=== PATIENT | male | born 1945 | race Caucasian/White ===

== ENCOUNTER 2021-01-19 04:24 | Emergency (ER) | payer MEDICARE ==
[2021-01-19 04:33] VITALS: BP 150/70; PULSE 81; TEMP 98.1; BMI 28.7
[2021-01-19] MEDS ORDERED: MINERAL OIL ENEMA 133 ML ENEMA PR ONE (05:07)
== END 2021-01-19 05:25 | disposition home or self-care (01) ==
LOC: JER 04:24
DX: K59.00 Constipation, unspecified (principal)
CPT/HCPCS: 99283-25

== ENCOUNTER 2023-06-01 18:27 | Inpatient (IN) | payer MEDICARE ==
[2023-06-01 20:55] LABS: BASO % 0.3 % (0-2.0); EOS % 0.4 % (0-4.5); HEMATOCRIT 32.6 % (35.4-49); HEMOGLOBIN 10.8 GM/dL (11.7-16.9); LYMPH % 57.6 % (8-40); MCH 25.1 pg (25.7-33.7); MEAN PLT VOLUME 7.3 fl (7.5-11.1); NEUT % 35.7 % (42.8-82.8); PLATELET COUNT 175 10^3/uL (134-434); RBC 4.29 M/mm3 (4.00-5.60); RDW 16.7 % (11.9-15.9); WHITE BLOOD COUNT 10.4 K/mm3 (4.0-10.0)
[2023-06-01 21:02] LABS: INR 1.13 (0.83-1.09); PROTHROMBIN TIME (PATIENT) 13.1 SEC (9.7-13.0)
[2023-06-01 21:05] LABS: ACTIVATED PTT 31.2 SECONDS (25.2-36.5)
[2023-06-01 21:18] LABS: POTASSIUM 4.5 mmol/L (3.5-5.1)
[2023-06-01 21:21] LABS: BLOOD UREA NITROGEN 24.6 mg/dL (7-18); MAGNESIUM 1.8 mg/dL (1.8-2.4)
[2023-06-01 21:24] LABS: CREATININE 1.2 mg/dL (0.55-1.3); PHOSPHOROUS 3.6 mg/dL (2.5-4.9)
[2023-06-01 21:25] LABS: TOT PROT 6.1 g/dl (6.4-8.2)
[2023-06-01 21:26] LABS: BILIRUBIN,TOTAL 0.3 mg/dL (0.2-1)
[2023-06-01] MEDS ORDERED: ACETAMINOPHEN INJECTION 100 ML IVPB ONE (21:41)
[2023-06-01] MEDS ORDERED: KETOROLAC TROMETHAMINE 30 MG/1 ML VIAL ONE (21:41)
[2023-06-01] MEDS ORDERED: LIDOCAINE 4% PATCH TP ONE (21:41)
[2023-06-01] MEDS: KETOROLAC TROMETHAMINE 15 MG/ML VIAL IVPUSH ONE (21:52)
[2023-06-01] MEDS: ACETAMINOPHEN 1000 MG/100 ML BAG IVPB ONE (21:52)
[2023-06-01] MEDS: LIDOCAINE 4% PATCH TP ONE (21:52)
[2023-06-01] MEDS: SODIUM CHLORIDE 0.9% 500 ML INFUS.BAG IV ONE (22:03)
[2023-06-02] MEDS ORDERED: DEXAMETHASONE SOD PHOSPHATE 10 MG/1 ML VIAL ONE (01:05)
[2023-06-02] MEDS: DEXAMETHASONE SOD PHOSPHATE 10 MG/1 ML VIAL IVPUSH ONE (01:11)
[2023-06-02] MEDS ORDERED: DEXTROSE 5%-0.45% SALINE 1,000 ML IV SCH (03:13)
[2023-06-02] MEDS: DEXTROSE 5%-0.45% SALINE 1,000 ML IV SCH (03:25)
[2023-06-02] MEDS ORDERED: ACETAMINOPHEN 1000 MG/100 ML BAG IVPB PRN (04:00)
[2023-06-02] MEDS ORDERED: hydrALAZINE HCL 25 MG TABLET (FP) PO SCH (06:00)
[2023-06-02] MEDS: SODIUM CHLORIDE 1,000 ML IV SCH ×2 (06:32→18:30)
[2023-06-02] MEDS: INSULIN ASPART SLIDING SCALE (NOVOLOG) 1 VIAL SQ SCH ×2 (06:35→18:30)
[2023-06-02] MEDS ORDERED: THROMBIN (BOVINE) 5,000 UNIT VIAL TP ONE (08:37)
[2023-06-02] MEDS ORDERED: GENTAMICIN SO4 80 MG/2 ML VIAL ONE (08:37)
[2023-06-02] MEDS ORDERED: LIDOCAINE 1%/EPI 1:100000 (20 ML MULTI DOSE VIAL) ONE (08:38)
[2023-06-02] MEDS ORDERED: BACITRACIN ZINC 15 GM TUBE TOPICAL OINTMENT ONE (08:38)
[2023-06-02] MEDS ORDERED: PROPOFOL 40 ML ONE (08:41)
[2023-06-02] MEDS ORDERED: ROCURONIUM BROMIDE 50 MG/5 ML SYRINGE ONE ×2 (08:41→10:15)
[2023-06-02] MEDS ORDERED: SUCCINYLCHOLINE CHLORIDE 200 MG/10 ML SYRINGE ONE (08:41)
[2023-06-02 09:01] LABS: POTASSIUM 4.6 mmol/L (3.5-5.1)
[2023-06-02 09:16] LABS: CALCIUM 9.1 mg/dL (8.5-10.1)
[2023-06-02 09:17] LABS: BLOOD UREA NITROGEN 23.9 mg/dL (7-18)
[2023-06-02 09:20] LABS: CREATININE 1.1 mg/dL (0.55-1.3)
[2023-06-02] MEDS: metoPROLOL SUCCINATE 25 MG TAB.SR.24H (FP) PO SCH (09:30)
[2023-06-02 09:33] LABS: BASO % 0.3 % (0-2.0); HEMATOCRIT 33.4 % (35.4-49); HEMOGLOBIN 10.7 GM/dL (11.7-16.9); LYMPH % 44.3 % (8-40); MCH 24.6 pg (25.7-33.7); MEAN CELL VOLUME 76.7 fl (80-96); MEAN PLT VOLUME 7.6 fl (7.5-11.1); MONO % 1.7 % (3.8-10.2); NEUT % 53.7 % (42.8-82.8); PLATELET COUNT 161 10^3/uL (134-434); RBC 4.36 M/mm3 (4.00-5.60); RDW 16.5 % (11.9-15.9); WHITE BLOOD COUNT 6.1 K/mm3 (4.0-10.0)
[2023-06-02] MEDS: TAMSULOSIN HCL 0.4 MG CAP PO SCH (09:49)
[2023-06-02] MEDS: ISOSORBIDE MONONITRATE 30 MG TAB.SR.24H (FP) PO SCH (09:50)
[2023-06-02] MEDS: LIDOCAINE PATCH REMOVAL MC SCH (09:50)
[2023-06-02] MEDS: FINASTERIDE 5 MG TABLET (FP) PO SCH (09:50)
[2023-06-02] MEDS: FLUTICASONE PROP 0.05% 16 GM NASAL SPRAY NS SCH (09:50)
[2023-06-02] MEDS: ALLOPURINOL 100 MG TABLET (FP) PO SCH (09:50)
[2023-06-02] MEDS: PANTOPRAZOLE 40 MG TABLET PO SCH (09:50)
[2023-06-02] MEDS: DULoxetine HCL 20 MG CAPSULE.DR PO SCH ×2 (09:50→21:45)
[2023-06-02] MEDS: LIDOCAINE 1%/EPI 1:100000 (50 ML MULTI DOSE VIAL) INF ONE (10:42)
[2023-06-02] MEDS ORDERED: VANCOMYCIN 1,000 MG VIAL (RESTRICTED TO ID ONLY) ONE (10:42)
[2023-06-02] MEDS: ceFAZolin SODIUM 1 GM VIAL IVPB ONE (10:43)
[2023-06-02] MEDS: VANCOMYCIN 1,000 MG VIAL (RESTRICTED TO ID ONLY) IVPB ONE (10:44)
[2023-06-02] MEDS ORDERED: DEXAMETHASONE SOD PHOSPHATE 4 MG/1 ML VIAL ONE (11:24)
[2023-06-02] MEDS ORDERED: ONDANSETRON 4 MG/2 ML VIAL ONE (11:24)
[2023-06-02] MEDS ORDERED: ceFAZolin SODIUM 1 GM VIAL ONE (11:24)
[2023-06-02] MEDS: THROMBIN (BOVINE) 5,000 UNIT VIAL TP ONE (11:37)
[2023-06-02] MEDS ORDERED: BUPIVACAINE HCL/PF 0.5% (5MG/ML) 10 ML VIAL ONE (12:33)
[2023-06-02] MEDS ORDERED: BUPIVACAINE LIPOSOME/PF (EXPAREL) 266 MG/20 ML VIAL ONE (12:33)
[2023-06-02] MEDS: BUPIVACAINE LIPOSOME/PF (EXPAREL) 266 MG/20 ML VIAL NR ONE (12:38)
[2023-06-02] MEDS: BUPIVACAINE HCL/PF 0.5% (5 MG/ML) 30 ML VIAL IJ ONE (12:39)
[2023-06-02] MEDS ORDERED: SUGAMMADEX SODIUM 200 MG/2 ML VIAL ONE (12:45)
[2023-06-02] MEDS ORDERED: ACETAMINOPHEN INJECTION 100 ML IVPB ONE (13:50)
[2023-06-02] MEDS ORDERED: LABETALOL HCL 5 MG/1 ML (100MG/20 ML VIAL) ONE (14:23)
[2023-06-02] MEDS: LABETALOL HCL 20 MG/4 ML VIAL ONE (14:25)
[2023-06-02] MEDS ORDERED: oxyCODONE HCL 5 MG TABLET PO PRN ×2 (14:28)
[2023-06-02] MEDS ORDERED: ONDANSETRON 4 MG/2 ML VIAL IVPUSH PRN ×2 (15:03→15:07)
[2023-06-02] MEDS ORDERED: LACTATED RINGERS SOLUTION 1,000 ML/1,000 ML INFUS.BAG IV SCH (15:07)
[2023-06-02] MEDS ORDERED: diphenhydrAMINE HCL 25 MG CAPSULE (FP) PO PRN (15:07)
[2023-06-02] MEDS ORDERED: LACTATED RINGERS SOLUTION 1,000 ML IV SCH (15:15)
[2023-06-02] MEDS: LABETALOL HCL 5 MG/1 ML (100MG/20 ML VIAL) IVPUSH ONE (18:57)
[2023-06-02] MEDS: CEFAZOLIN 1 GM in DEXTROSE 5%-WATER - 50 ML IVPB SCH (19:05)
[2023-06-02] MEDS: ACETAMINOPHEN 1000 MG/100 ML BAG IVPB SCH (21:00)
[2023-06-02] MEDS: DOCUSATE SODIUM 100 MG CAPSULE (FP) PO SCH (21:42)
[2023-06-02] MEDS: ATORVASTATIN CA 40 MG TABLET (FP) PO SCH (21:46)
[2023-06-02] MEDS: oxyCODONE HCL 5 MG TABLET PO PRN (21:46)
[2023-06-02] MEDS ORDERED: ATORVASTATIN CA 40 MG TABLET (FP) PO SCH (22:00)
[2023-06-03] MEDS ORDERED: ceFAZolin SODIUM 1 GM VIAL ONE (03:03)
[2023-06-03 08:21] LABS: POTASSIUM 4.6 mmol/L (3.5-5.1)
[2023-06-03 08:22] LABS: CALCIUM 7.8 mg/dL (8.5-10.1)
[2023-06-03 08:26] LABS: CREATININE 1.3 mg/dL (0.55-1.3)
[2023-06-03 08:27] LABS: HEMATOCRIT 26.5 % (35.4-49); HEMOGLOBIN 8.5 GM/dL (11.7-16.9); MCH 24.6 pg (25.7-33.7); MCHC 32.2 g/dl (32.0-35.9); MEAN CELL VOLUME 76.4 fl (80-96); MEAN PLT VOLUME 7.6 fl (7.5-11.1); PLATELET COUNT 186 10^3/uL (134-434); RBC 3.46 M/mm3 (4.00-5.60); RDW 16.6 % (11.9-15.9); WHITE BLOOD COUNT 11.9 K/mm3 (4.0-10.0)
[2023-06-03] MEDS: FINASTERIDE 5 MG TABLET (FP) PO SCH (09:44)
[2023-06-03] MEDS: ALLOPURINOL 100 MG TABLET (FP) PO SCH (09:44)
[2023-06-03] MEDS: metoPROLOL SUCCINATE 25 MG TAB.SR.24H (FP) PO SCH (09:44)
[2023-06-03] MEDS: FOLIC ACID 1 MG TABLET (FP) PO SCH (09:44)
[2023-06-03] MEDS: TAMSULOSIN HCL 0.4 MG CAP PO SCH (09:44)
[2023-06-03] MEDS: FERROUS SO4 325 MG TABLET (FP) PO SCH (09:44)
[2023-06-03] MEDS: PANTOPRAZOLE 40 MG TABLET PO SCH (09:44)
[2023-06-03] MEDS: ISOSORBIDE MONONITRATE 30 MG TAB.SR.24H (FP) PO SCH (09:44)
[2023-06-03] MEDS: HEPARIN NA (PORCINE) 5,000 UNITS/ML 1ML VIAL SQ SCH (09:45)
[2023-06-03] MEDS: FLUTICASONE PROP 0.05% 16 GM NASAL SPRAY NS SCH (10:40)
[2023-06-03] MEDS ORDERED: INSULIN (NOVOLOG) ASPART 100 UNITS/ML 10ML VIAL ONE ×2 (11:42→20:54)
[2023-06-04] MEDS: oxyCODONE HCL 5 MG TABLET PO PRN (11:53)
[2023-06-04 11:54] LABS: PH,URINE 5.5 (5.0-8.0); URINE APPEARANCE CLEAR; URINE BILIRUBIN NEGATIVE (NEGATIVE); URINE COLOR YELLOW; URINE GLUCOSE (UA) NEGATIVE (NEGATIVE); URINE KETONE NEGATIVE (NEGATIVE); URINE LEUK ESTERASE NEGATIVE (NEGATIVE); URINE NITRITE NEGATIVE (NEGATIVE); URINE PROTEIN TRACE (NEGATIVE); URINE UROBILINOGEN 0.2 mg/dL (0.2-1.0)
[2023-06-04] MEDS: ACETAMINOPHEN 500 MG TABLET (FP) PO SCH (20:18)
[2023-06-04] MEDS: CYCLOBENZAPRINE HCL 10 MG TABLET (FP) PO SCH (21:40)
[2023-06-04] MEDS ORDERED: INSULIN (NOVOLOG) ASPART 100 UNITS/ML 10ML VIAL ONE (22:01)
[2023-06-05] MEDS: MELATONIN 5 MG TABLETS PO PRN (23:21)
[2023-06-05] MEDS: oxyCODONE HCL 5 MG TABLET PO PRN (23:22)
[2023-06-06 07:57] LABS: BASO % 0.3 % (0-2.0); EOS % 0.7 % (0-4.5); HEMATOCRIT 28.6 % (35.4-49); HEMOGLOBIN 9.1 GM/dL (11.7-16.9); MCH 24.5 pg (25.7-33.7); MEAN CELL VOLUME 76.5 fl (80-96); MEAN PLT VOLUME 7.4 fl (7.5-11.1); MONO % 5.7 % (3.8-10.2); NEUT % 44.3 % (42.8-82.8); PLATELET COUNT 217 10^3/uL (134-434); RBC 3.73 M/mm3 (4.00-5.60); RDW 16.3 % (11.9-15.9)
[2023-06-06 08:22] LABS: POTASSIUM 4.2 mmol/L (3.5-5.1)
[2023-06-06 11:03] LABS: ALBUMIN 2.8 g/dl (3.4-5.0); BILIRUBIN,TOTAL 0.4 mg/dL (0.2-1); BLOOD UREA NITROGEN 23.7 mg/dL (7-18); CALCIUM 8.7 mg/dL (8.5-10.1); CREATININE 1.1 mg/dL (0.55-1.3); TOT PROT 5.6 g/dl (6.4-8.2)
[2023-06-07] MEDS: POLYETHYLENE GLYCOL (HEALTHYLAX) 3350 17 GM PACKET PO SCH (13:25)
[2023-06-07] MEDS ORDERED: INSULIN (NOVOLOG) ASPART 100 UNITS/ML 10ML VIAL ONE ×2 (17:28→20:44)
[2023-06-07] MEDS: FUROSEMIDE 40 MG/4 ML INJECTABLE VIAL IVPUSH ONE (18:54)
[2023-06-08 08:55] LABS: BASO % 0.3 % (0-2.0); EOS % 0.5 % (0-4.5); HEMATOCRIT 24.7 % (35.4-49); HEMOGLOBIN 8.2 GM/dL (11.7-16.9); LYMPH % 48.9 % (8-40); MCH 25.1 pg (25.7-33.7); MCHC 33.2 g/dl (32.0-35.9); MEAN CELL VOLUME 75.8 fl (80-96); MONO % 6.5 % (3.8-10.2); NEUT % 43.8 % (42.8-82.8); PLATELET COUNT 250 10^3/uL (134-434); RBC 3.25 M/mm3 (4.00-5.60); RDW 16.4 % (11.9-15.9); WHITE BLOOD COUNT 10.9 K/mm3 (4.0-10.0)
[2023-06-08 09:17] LABS: POTASSIUM 4.4 mmol/L (3.5-5.1)
[2023-06-08 09:20] LABS: CALCIUM 8.1 mg/dL (8.5-10.1)
[2023-06-08 09:21] LABS: ALBUMIN 2.5 g/dl (3.4-5.0)
[2023-06-08 09:24] LABS: BLOOD UREA NITROGEN 23.2 mg/dL (7-18)
[2023-06-08 09:26] LABS: BILIRUBIN,TOTAL 0.3 mg/dL (0.2-1)
[2023-06-08] MEDS: ISOSORBIDE MONONITRATE 60 MG TAB.SR.24H (FP) PO SCH (10:40)
[2023-06-09] MEDS ORDERED: INSULIN (NOVOLOG) ASPART 100 UNITS/ML 10ML VIAL ONE (17:52)
[2023-06-09] MEDS: FUROSEMIDE 40 MG/4 ML INJECTABLE VIAL IVPUSH SCH (17:57)
[2023-06-10 07:59] LABS: BASO % 0.4 % (0-2.0); EOS % 0.2 % (0-4.5); HEMATOCRIT 25.9 % (35.4-49); HEMOGLOBIN 8.4 GM/dL (11.7-16.9); LYMPH % 39.2 % (8-40); MCH 25.2 pg (25.7-33.7); MCHC 32.6 g/dl (32.0-35.9); MEAN CELL VOLUME 77.2 fl (80-96); MEAN PLT VOLUME 7.2 fl (7.5-11.1); MONO % 6.3 % (3.8-10.2); NEUT % 53.9 % (42.8-82.8); PLATELET COUNT 300 10^3/uL (134-434); RBC 3.35 M/mm3 (4.00-5.60); WHITE BLOOD COUNT 10.8 K/mm3 (4.0-10.0)
[2023-06-10] MEDS ORDERED: INSULIN (NOVOLOG) ASPART 100 UNITS/ML 10ML VIAL ONE ×2 (08:20→12:10)
[2023-06-10 08:33] LABS: POTASSIUM 4.9 mmol/L (3.5-5.1)
[2023-06-10 08:37] LABS: ALBUMIN 2.6 g/dl (3.4-5.0); BLOOD UREA NITROGEN 21.2 mg/dL (7-18); CALCIUM 8.5 mg/dL (8.5-10.1)
[2023-06-10 08:42] LABS: BILIRUBIN,TOTAL 0.4 mg/dL (0.2-1); TOT PROT 5.4 g/dl (6.4-8.2)
[2023-06-10] MEDS: HEPARIN NA (PORCINE) 5,000 UNITS/ML 1ML VIAL SQ SCH (12:21)
[2023-06-11 09:44] LABS: BASO % 0.5 % (0-2.0); EOS % 0.6 % (0-4.5); HEMATOCRIT 27.3 % (35.4-49); LYMPH % 40.2 % (8-40); MCH 25.3 pg (25.7-33.7); MEAN CELL VOLUME 76.8 fl (80-96); MEAN PLT VOLUME 7.1 fl (7.5-11.1); MONO % 4.9 % (3.8-10.2); NEUT % 53.8 % (42.8-82.8); PLATELET COUNT 369 10^3/uL (134-434); RBC 3.56 M/mm3 (4.00-5.60); RDW 17.1 % (11.9-15.9); WHITE BLOOD COUNT 10.7 K/mm3 (4.0-10.0)
[2023-06-11 10:08] LABS: POTASSIUM 4.6 mmol/L (3.5-5.1)
[2023-06-11 10:12] LABS: ALBUMIN 2.6 g/dl (3.4-5.0); CALCIUM 8.9 mg/dL (8.5-10.1)
[2023-06-11 10:13] LABS: BLOOD UREA NITROGEN 18.6 mg/dL (7-18)
[2023-06-11 10:17] LABS: BILIRUBIN,TOTAL 0.4 mg/dL (0.2-1); HDL CHOLESTEROL 35 mg/dL (40-60); TOT PROT 5.5 g/dl (6.4-8.2)
[2023-06-11 10:18] LABS: CHOLESTEROL 117 mg/dL (50-200)
[2023-06-11 10:19] LABS: LDL CHOLESTEROL (ONLY SJRH) 59 mg/dL (5-100)
[2023-06-11 11:11] LABS: CREATININE 0.9 mg/dL (0.55-1.3)
[2023-06-11] MEDS ORDERED: INSULIN (NOVOLOG) ASPART 100 UNITS/ML 10ML VIAL ONE ×2 (12:27→17:20)
[2023-06-11 12:32] VITALS: RESP 18
[2023-06-11 14:56] VITALS: BMI 30.2
[2023-06-11 15:22] VITALS: BP 120/69; PULSE 98; TEMP 97.7
== END 2023-06-12 04:17 | DRG 471 ==
LOC: JER 18:27 → JERBED 06-02 01:00 → J6S 06-02 02:07 → J8W 06-02 17:16
PROVIDERS: ADMIT Internal Medicine; ATTEND Internal Medicine
PROC: 00NW0ZZ Release Cervical Spinal Cord, Open Approach (ICD-10-PCS; 2023-06-02)
PROC: 4A1004G Monitoring of Central Nervous Electrical Activity, Intraoperative, Open Approach (ICD-10-PCS; 2023-06-02)
PROC: 0RG2071 Fusion of 2 or more Cervical Vertebral Joints with Autologous Tissue Substitute, Posterior Approach, Posterior Column, Open Approach (ICD-10-PCS; principal; 2023-06-02 09:00)
DX: M47.12 Other spondylosis with myelopathy, cervical region (principal); U07.1 COVID-19; G95.20 Unspecified cord compression; E87.1 Hypo-osmolality and hyponatremia; M40.292 Other kyphosis, cervical region; D50.9 Iron deficiency anemia, unspecified; I25.10 Atherosclerotic heart disease of native coronary artery without angina pectoris; Z95.1 Presence of aortocoronary bypass graft; I10 Essential (primary) hypertension; E78.5 Hyperlipidemia, unspecified; E11.9 Type 2 diabetes mellitus without complications; I87.2 Venous insufficiency (chronic) (peripheral); K21.9 Gastro-esophageal reflux disease without esophagitis; F32.A Depression, unspecified; M10.9 Gout, unspecified
CPT/HCPCS: 0241U-QW; 36415; 70450-TC; 71045-TC-FY; 72125-TC; 72141-TC; 80048; 80053; 80061; 81003; 82728; 82962; 83540; 83550; 83615; 83735; 84100; 85025; 85027; 85610; 85730; 86850; 86900; 86901; 86922; 87635; 93005; 93010; 93306-TC; 94760; 97116-GP; 97161-GP; 99285-25; C1713; J0131; J1100; J1644